=== PATIENT | male | born 1980 | race American Indian/Alaskan Native ===

== ENCOUNTER 2021-06-02 15:42 | Inpatient (IN) | payer MEDICAID ==
[~2021-06-02] VITALS: Ht 182.9 cm; Wt 115.9 kg
[2021-06-02] VITALS (11 sets, daily range): BP systolic 115–146; BP diastolic 60–94
[2021-06-02 16:41] LABS: BASOPHILS % (AUTO) 0.2 % (0-1); EOSINOPHILS % (AUTO) 0.2 % (0-6); HEMATOCRIT 42.9 % (42.0-52.0); LYMPHOCYTES # (AUTO) 0.8 X10'3 (1.1-4.8); LYMPHOCYTES % (AUTO) 4.1 % (21-51); MEAN CORPUSCULAR HEMOGLOBIN 29.5 PG (27.0-31.0); MEAN CORPUSCULAR VOLUME 84.1 FL (78-98); MEAN PLATELET VOLUME 7.3 FL (7.4-10.4); MONOCYTES # (AUTO) 1.5 X10'3 (0-0.9); MONOCYTES % (AUTO) 7.4 % (2-12); NEUTROPHILS # (AUTO) 17.4 X10'3 (1.8-7.7); NEUTROPHILS % (AUTO) 88.1 % (42-75); PLATELET COUNT 272 X10'3 (140-440); RED CELL DISTRIBUTION WIDTH 14.1 % (11.5-14.5); WHITE BLOOD COUNT 19.7 X10'3 (4.5-11.0)
[2021-06-02] MEDS ORDERED: iohexol 300mg/ml 100ml inj. ONE (16:42)
[2021-06-02 16:55] LABS: ALANINE AMINOTRANSFERASE 78 U/L (12-78); ALBUMIN 4.5 G/DL (3.4-5.0); ALBUMIN/GLOBULIN RATIO 0.9 (1.1-1.5); ALKALINE PHOSPHATASE 57 IU/L (46-116); ANION GAP 10 (8-16); ASPARTATE AMINO TRANSFERASE 20 U/L (10-37); BILIRUBIN,TOTAL 0.9 MG/DL (0.1-1.0); BLOOD UREA NITROGEN 8 MG/DL (7-18); BUN/CREATININE RATIO 7.8 (5.4-32.0); CALCIUM 9.7 MG/DL (8.5-10.1); CHLORIDE 94 MMOL/L (99-107); CREATININE 1.02 MG/DL (0.60-1.10); GLUCOSE 129 MG/DL (70-104); LIPASE 66 U/L (73-393); POTASSIUM 4.1 MMOL/L (3.5-5.1); SODIUM 132 MMOL/L (135-145); TOTAL CARBON DIOXIDE 28.1 MMOL/L (24-32); TOTAL PROTEIN 9.4 G/DL (6.4-8.2); eGFR 81 ML/MIN
[2021-06-02] MEDS ORDERED: metroNIDAZOLE-Flagyl 500mg/NS 100 ML IV STA (17:46)
[2021-06-02] MEDS ORDERED: CefTRIAXone/D5W-Rocephin 1gm 50 ML IV ONE (17:50)
[2021-06-02] MEDS ORDERED: MULT-1085 PO (18:34)
[2021-06-02] MEDS ORDERED: ondansetron/PF 4mg/2ml inj IV PRN ×2 (19:00→19:15)
[2021-06-02] MEDS ORDERED: potassium CL 10mEq/100ml bag 100 ML IV PRN (19:00)
[2021-06-02] MEDS ORDERED: potassium Cl 20 mEq SR tablet PO PRN ×2 (19:00)
[2021-06-02] MEDS ORDERED: morphine 2 MG/ML inj. syringe IV PRN ×2 (19:00→19:15)
[2021-06-02] MEDS: normal saline 1000ml 1,000 ML IV SCH (19:00)
[2021-06-02] MEDS ORDERED: magnesium 4gm in 100ml NS 100 ML IV PRN (19:00)
[2021-06-02] MEDS ORDERED: magnesium 2GM in 50ml NS 50 ML IV PRN (19:00)
[2021-06-02] MEDS ORDERED: magnesium Cl slow-release 64mg tablet PO PRN (19:00)
[2021-06-02] MEDS ORDERED: acetaminophen 325mg tablet PO PRN (19:00)
[2021-06-02] MEDS ORDERED: meperidine/PF 25mg/ml syringe IV PRN ×3 (19:15)
[2021-06-02] MEDS ORDERED: morphine 4 MG/ML inj SYRINge IV PRN (19:15)
[2021-06-02] MEDS ORDERED: ketorolac trometh. 30mg/ml inj. IV ONE (19:15)
[2021-06-02] MEDS ORDERED: proCHLORperazine 10 MG/2 ml inj IV PRN (19:15)
[2021-06-02] MEDS ORDERED: acetaminophen 1,000mg/100ml IV 100 ML IV PRN (19:15)
[2021-06-02] MEDS ORDERED: labetalol 20mg/4ml (5mg/ml) syringe IV PRN (19:15)
[2021-06-02] MEDS ORDERED: ringers solution, lacted 1,000 ML IV SCH (19:15)
[2021-06-02] MEDS ORDERED: hydrALAZINE 20mg/ml inj. IV PRN (19:15)
[2021-06-02] MEDS ORDERED: midazolam 1 mg/ML 2ml injection ONE (19:17)
[2021-06-02] MEDS ORDERED: famotidine/PF 10 mg/ml inj IV ONE (19:19)
[2021-06-02] MEDS ORDERED: fentaNYL /PF 50mcg/ml 5ml ampule ONE (19:21)
[2021-06-02] MEDS ORDERED: BUPIVAcaine/PF 2.5 mg/ml (0.25%) 30ml vial ONE (19:22)
[2021-06-02] MEDS ORDERED: sevoflurane 250ml liquid IH ONE (19:32)
[2021-06-02 19:43] LABS: MAGNESIUM 2.3 MG/DL (1.5-2.4); POTASSIUM 4.1 MMOL/L (3.5-5.1)
[2021-06-02] MEDS: K and/or MAG REPLACEMENT MC SCH (20:00)
[2021-06-02] MEDS: piperacillin/tazo 4.5gm/100ml 100 ML IV SCH (20:00)
[2021-06-02] MEDS ORDERED: rocuronium 10mg/ml inj IV ONE ×3 (20:09→21:18)
[2021-06-02] MEDS ORDERED: dexamethasone sod phosphate 4mg/ml inj. ONE (20:09)
[2021-06-02] MEDS ORDERED: acetaminophen 1,000mg/100ml IV 100 ML IV ONE (20:09)
[2021-06-02] MEDS ORDERED: LIDOcaine 2% (20mg/ml) 5ml vial ONE (20:09)
[2021-06-02] MEDS ORDERED: ondansetron/PF 4mg/2ml inj ONE (20:09)
[2021-06-02] MEDS ORDERED: propofol inj 20 ML IV ONE (20:09)
[2021-06-02] MEDS ORDERED: BUPIVAcaine/PF 2.5mg/ml (0.25%) 10ml vial ONE (20:29)
[2021-06-02] MEDS ORDERED: BUPIVACAINE liposomal/PF 13.3 MG/ML vial IM ONE (20:30)
[2021-06-02] MEDS ORDERED: glycopyrrolate 0.2mg/ml inj ONE (21:18)
[2021-06-02] MEDS ORDERED: neostigmine methylsulfate 1 MG/ML 10ml vial ONE (21:18)
--- NOTE | 2021-06-02 21:23 | NUR ---
Received from OR via SURGICAL BED , accompanied by Anesthesiologist DR WONG and report given by Anesthesiolgist. PT AROUSALBLE. STATES HIS PAIN IS MINIMAL. DRSG TO ABD CDI. ANURADHA DRAIN TO ABD W/ SS DRAINAGE NOTED. SCDS ON. IV PATENT.
--- NOTE | 2021-06-02 22:23 | NUR ---
PT TO [facility] [address] SURGICAL FLOOR VIA BED. CRISTY AT BEDSIDE. PT STATES PAIN IS WELL CONTROLLED AND DENIES NAUSEA. STATED READINESS FOR XFER TO FLOOR AND DENIES ANY NEEDS. PT ORIENTED TO ROOM AND CALL LIGHT. BED LOW, LOCKED, CALL LIGHT IN REACH. VSS. PT SET UP ON POST OP VITALS PER PROTOCOL. 1 BELONGING BAG TO ROOM. PHONE AT PT BEDSIDE. IV PATENT AND ABD DRSG REMAINS CDI.
[2021-06-03] VITALS (7 sets, daily range): BP systolic 110–142; BP diastolic 56–90
[2021-06-03] MEDS ORDERED: metroNIDAZOLE-Flagyl 500mg/NS 100 ML IV SCH
[2021-06-03] MEDS: ketorolac trometh. 30mg/ml inj. IV PRN ×2 (00:30→05:53)
[2021-06-03] MEDS: Melatonin 3mg tablet PO SCH ×2 (01:24→21:23)
[2021-06-03] MEDS: normal saline 1000ml 1,000 ML IV SCH ×2 (05:00→15:00)
--- NOTE | 2021-06-03 07:20 | NUR ---
Problems reprioritized. Patient report given, questions answered & plan of care reviewed with
[2021-06-03] MEDS: piperacillin/tazo 4.5gm/100ml 100 ML IV SCH ×2 (07:27→16:13)
[2021-06-03 07:30] LABS: ALANINE AMINOTRANSFERASE 51 U/L (12-78); ALBUMIN 3.4 G/DL (3.4-5.0); ALBUMIN/GLOBULIN RATIO 0.9 (1.1-1.5); ALKALINE PHOSPHATASE 44 IU/L (46-116); ANION GAP 15 (8-16); ASPARTATE AMINO TRANSFERASE 15 U/L (10-37); BILIRUBIN,TOTAL 0.7 MG/DL (0.1-1.0); BLOOD UREA NITROGEN 8 MG/DL (7-18); BUN/CREATININE RATIO 7.9 (5.4-32.0); CALCIUM 9.1 MG/DL (8.5-10.1); CHLORIDE 101 MMOL/L (99-107); CREATININE 1.01 MG/DL (0.60-1.10); GLUCOSE 157 MG/DL (70-104); MAGNESIUM 2.3 MG/DL (1.5-2.4); POTASSIUM 3.8 MMOL/L (3.5-5.1); SODIUM 139 MMOL/L (135-145); TOTAL CARBON DIOXIDE 23.4 MMOL/L (24-32); TOTAL PROTEIN 7.1 G/DL (6.4-8.2); eGFR 82 ML/MIN
[2021-06-03 07:31] LABS: BASOPHILS % (AUTO) 0 % (0-1); EOSINOPHILS % (AUTO) 0 % (0-6); HEMATOCRIT 39.8 % (42.0-52.0); HEMOGLOBIN 13.4 g/dl (14.0-17.9); LYMPHOCYTES # (AUTO) 0.5 X10'3 (1.1-4.8); LYMPHOCYTES % (AUTO) 3.8 % (21-51); MEAN CORPUSCULAR HEMOGLOBIN 29.2 PG (27.0-31.0); MEAN CORPUSCULAR HGB CONC 33.8 g/dL (33.0-36.5); MEAN CORPUSCULAR VOLUME 86.3 FL (78-98); MEAN PLATELET VOLUME 7.7 FL (7.4-10.4); MONOCYTES % (AUTO) 6.9 % (2-12); NEUTROPHILS # (AUTO) 12.4 X10'3 (1.8-7.7); NEUTROPHILS % (AUTO) 89.3 % (42-75); PLATELET COUNT 220 X10'3 (140-440); RED BLOOD COUNT 4.61 X10'6 (4.70-6.10); RED CELL DISTRIBUTION WIDTH 13.9 % (11.5-14.5); WHITE BLOOD COUNT 13.9 X10'3 (4.5-11.0)
[2021-06-03] MEDS ORDERED: CefTRIAXone/D5W-Rocephin 1gm 50 ML IV SCH (08:00)
[2021-06-03] MEDS: K and/or MAG REPLACEMENT MC SCH ×2 (08:00→20:00)
[2021-06-03] MEDS: HYDROcodone/acetaminophen 10/325mg tab PO PRN ×3 (10:55→22:36)
[2021-06-03] MEDS: potassium CL 20mEq in D5-1/2NS 1,000 ML IV SCH ×4 (10:56→21:24)
[2021-06-03] MEDS: morphine 2 MG/ML inj. syringe IV PRN ×2 (12:36→18:47)
--- NOTE | 2021-06-03 18:46 | NUR ---
Report given to Stoney LLA, all questions answered, no current concerns. Pt resting comfortably but with some pain, at bedside. Pain meds recently given.
[2021-06-03] MEDS: lactobacillus rhamnosus 10,000 MMU CELLS/CAPSULE PO SCH (21:23)
[2021-06-04] MEDS: piperacillin/tazo 4.5gm/100ml 100 ML IV SCH ×3 (00:13→17:01)
[2021-06-04] MEDS ORDERED: ondansetron/PF 4mg/2ml inj IV PRN (04:20)
[2021-06-04] MEDS ORDERED: ondansetron/PF 4mg/2ml inj IV ONE (04:20)
[2021-06-04] MEDS: potassium CL 20mEq in D5-1/2NS 1,000 ML IV SCH ×2 (04:54→14:12)
[2021-06-04 06:48] LABS: BASOPHILS % (AUTO) 0.1 % (0-1); EOSINOPHILS % (AUTO) 0.2 % (0-6); HEMATOCRIT 39.6 % (42.0-52.0); HEMOGLOBIN 13.4 g/dl (14.0-17.9); LYMPHOCYTES # (AUTO) 0.7 X10'3 (1.1-4.8); MEAN CORPUSCULAR HEMOGLOBIN 29.2 PG (27.0-31.0); MEAN CORPUSCULAR HGB CONC 33.8 g/dL (33.0-36.5); MEAN CORPUSCULAR VOLUME 86.6 FL (78-98); MEAN PLATELET VOLUME 7.9 FL (7.4-10.4); MONOCYTES % (AUTO) 8.6 % (2-12); NEUTROPHILS # (AUTO) 10.3 X10'3 (1.8-7.7); NEUTROPHILS % (AUTO) 85.1 % (42-75); PLATELET COUNT 256 X10'3 (140-440); RED BLOOD COUNT 4.58 X10'6 (4.70-6.10); RED CELL DISTRIBUTION WIDTH 14.2 % (11.5-14.5); WHITE BLOOD COUNT 12.1 X10'3 (4.5-11.0)
[2021-06-04 06:57] LABS: ALANINE AMINOTRANSFERASE 39 U/L (12-78); ALBUMIN 3.2 G/DL (3.4-5.0); ALBUMIN/GLOBULIN RATIO 0.7 (1.1-1.5); ALKALINE PHOSPHATASE 52 IU/L (46-116); ANION GAP 10 (8-16); ASPARTATE AMINO TRANSFERASE 20 U/L (10-37); BILIRUBIN,TOTAL 0.7 MG/DL (0.1-1.0); BLOOD UREA NITROGEN 10 MG/DL (7-18); BUN/CREATININE RATIO 10.2 (5.4-32.0); CALCIUM 8.9 MG/DL (8.5-10.1); CHLORIDE 99 MMOL/L (99-107); CREATININE 0.98 MG/DL (0.60-1.10); GLUCOSE 159 MG/DL (70-104); MAGNESIUM 2.3 MG/DL (1.5-2.4); SODIUM 134 MMOL/L (135-145); TOTAL CARBON DIOXIDE 24.6 MMOL/L (24-32); TOTAL PROTEIN 7.5 G/DL (6.4-8.2); eGFR 85 ML/MIN
--- NOTE | 2021-06-04 07:09 | NUR ---
Problems reprioritized. Patient report given, questions answered & plan of care reviewed with SCOTT. Addendum: 06/04/21 at 0709 by Rowdy Figueroa RN Amended: Links added.
[2021-06-04 07:15] VITALS: BP 152/95
[2021-06-04] MEDS: lactobacillus rhamnosus 10,000 MMU CELLS/CAPSULE PO SCH ×2 (07:43→20:00)
[2021-06-04] MEDS: K and/or MAG REPLACEMENT MC SCH ×2 (07:43→20:00)
[2021-06-04] MEDS: HYDROcodone/acetaminophen 10/325mg tab PO PRN ×3 (07:48→20:26)
--- NOTE | 2021-06-04 08:39 | NUR ---
PAGER ID: [phone] MESSAGE: [id number] Zelda August: patient requesting Maalox. celestina tomlin [phone]
[2021-06-04] MEDS: morphine 2 MG/ML inj. syringe IV PRN ×2 (11:20→17:05)
[2021-06-04 12:48] VITALS: BP 143/83
[2021-06-04] MEDS ORDERED: mag hydrox/Alum hydrox/simeth 30ml oral suspension PO PRN (13:15)
[2021-06-04] MEDS: metoclopramide 5 mg/ml inj IV SCH ×2 (14:12→20:25)
--- NOTE | 2021-06-04 16:19 | NUR ---
PAGE SENT TO [facility]. 332Y Zelda VALADEZ: PATIENT NEEDS TO BE DARTED. THANK YOU!
[2021-06-04 18:00] VITALS: BP 148/86
--- NOTE | 2021-06-04 18:11 | NUR ---
Problems reprioritized. Patient report given, questions answered & plan of care reviewed with LUKASZ HARMON.
[2021-06-04] MEDS: enoxaparin 40mg/0.4ml syringe SUBCUT SCH (20:25)
[2021-06-04] MEDS: Melatonin 3mg tablet PO SCH (20:26)
[2021-06-05] VITALS: BP 145/93
[2021-06-05] MEDS: piperacillin/tazo 4.5gm/100ml 100 ML IV SCH ×3 (00:13→15:39)
[2021-06-05] MEDS: potassium CL 20mEq in D5-1/2NS 1,000 ML IV SCH ×4 (00:14→21:10)
[2021-06-05] MEDS: metoclopramide 5 mg/ml inj IV SCH ×4 (02:10→20:00)
--- NOTE | 2021-06-05 05:00 | NUR ---
Stable throughout the shift. Has not passed gas, feels "more gurgling." 290cc from drain
[2021-06-05 06:00] LABS: BASOPHILS % (AUTO) 0.4 % (0-1); EOSINOPHILS # (AUTO) 0.3 X10'3 (0-0.9); EOSINOPHILS % (AUTO) 3.4 % (0-6); HEMATOCRIT 37.9 % (42.0-52.0); HEMOGLOBIN 13.2 g/dl (14.0-17.9); LYMPHOCYTES # (AUTO) 0.9 X10'3 (1.1-4.8); LYMPHOCYTES % (AUTO) 12.6 % (21-51); MEAN CORPUSCULAR HEMOGLOBIN 30.2 PG (27.0-31.0); MEAN CORPUSCULAR HGB CONC 34.7 g/dL (33.0-36.5); MEAN CORPUSCULAR VOLUME 86.9 FL (78-98); MEAN PLATELET VOLUME 7.4 FL (7.4-10.4); MONOCYTES # (AUTO) 0.8 X10'3 (0-0.9); MONOCYTES % (AUTO) 11.4 % (2-12); NEUTROPHILS # (AUTO) 5.3 X10'3 (1.8-7.7); NEUTROPHILS % (AUTO) 72.2 % (42-75); PLATELET COUNT 283 X10'3 (140-440); RED BLOOD COUNT 4.36 X10'6 (4.70-6.10); RED CELL DISTRIBUTION WIDTH 13.9 % (11.5-14.5); WHITE BLOOD COUNT 7.3 X10'3 (4.5-11.0)
--- NOTE | 2021-06-05 06:15 | NUR ---
Change of shift report given to Angeles LAL Addendum: 06/05/21 at 0654 by Charu Frederick RN Amended: Links added.
[2021-06-05 06:17] LABS: ALANINE AMINOTRANSFERASE 34 U/L (12-78); ALBUMIN/GLOBULIN RATIO 0.7 (1.1-1.5); ALKALINE PHOSPHATASE 42 IU/L (46-116); ANION GAP 8 (8-16); ASPARTATE AMINO TRANSFERASE 13 U/L (10-37); BILIRUBIN,TOTAL 0.6 MG/DL (0.1-1.0); BLOOD UREA NITROGEN 7 MG/DL (7-18); CALCIUM 9.1 MG/DL (8.5-10.1); CHLORIDE 101 MMOL/L (99-107); GLUCOSE 143 MG/DL (70-104); MAGNESIUM 2.3 MG/DL (1.5-2.4); POTASSIUM 4.1 MMOL/L (3.5-5.1); SODIUM 137 MMOL/L (135-145); TOTAL CARBON DIOXIDE 27.6 MMOL/L (24-32); TOTAL PROTEIN 7.2 G/DL (6.4-8.2); eGFR 83 ML/MIN
[2021-06-05 07:00] VITALS: BP 155/100
[2021-06-05] MEDS: K and/or MAG REPLACEMENT MC SCH ×2 (08:00→20:00)
[2021-06-05] MEDS: lactobacillus rhamnosus 10,000 MMU CELLS/CAPSULE PO SCH ×2 (08:00→20:00)
[2021-06-05] MEDS: ketorolac trometh. 30mg/ml inj. IV PRN ×2 (08:08→15:42)
[2021-06-05 13:00] VITALS: BP 145/95
[2021-06-05 18:00] VITALS: BP 163/86
--- NOTE | 2021-06-05 18:18 | NUR ---
Problems reprioritized. Patient report given, questions answered & plan of care reviewed with LUKASZ Mora.
--- NOTE | 2021-06-05 18:18 | NUR ---
Patient in room [facility]. I have received report from LUKASZ Reynoso and had the opportunity to ask questions and assume patient care.
[2021-06-05] MEDS: enoxaparin 40mg/0.4ml syringe SUBCUT SCH (20:00)
[2021-06-06] MEDS: piperacillin/tazo 4.5gm/100ml 100 ML IV SCH ×2 (00:04→09:16)
[2021-06-06] MEDS: Melatonin 3mg tablet PO SCH (00:05)
[2021-06-06 00:15] VITALS: BP 161/93
[2021-06-06 00:20] VITALS: BP 148/82
[2021-06-06] MEDS: ketorolac trometh. 30mg/ml inj. IV PRN ×2 (01:27→10:50)
[2021-06-06] MEDS: metoclopramide 5 mg/ml inj IV SCH ×2 (01:56→08:00)
[2021-06-06] MEDS: potassium CL 20mEq in D5-1/2NS 1,000 ML IV SCH ×2 (05:10→09:04)
[2021-06-06 06:31] LABS: MEAN CORPUSCULAR HEMOGLOBIN 29.9 PG (27.0-31.0)
[2021-06-06 06:34] LABS: BASOPHILS % (AUTO) 0.4 % (0-1); EOSINOPHILS # (AUTO) 0.3 X10'3 (0-0.9); HEMATOCRIT 36.6 % (42.0-52.0); HEMOGLOBIN 12.7 g/dl (14.0-17.9); LYMPHOCYTES # (AUTO) 0.9 X10'3 (1.1-4.8); LYMPHOCYTES % (AUTO) 10.3 % (21-51); MEAN CORPUSCULAR HGB CONC 34.6 g/dL (33.0-36.5); MEAN CORPUSCULAR VOLUME 86.5 FL (78-98); MEAN PLATELET VOLUME 7.3 FL (7.4-10.4); MONOCYTES # (AUTO) 0.9 X10'3 (0-0.9); MONOCYTES % (AUTO) 10.4 % (2-12); NEUTROPHILS # (AUTO) 6.4 X10'3 (1.8-7.7); NEUTROPHILS % (AUTO) 74.9 % (42-75); PLATELET COUNT 284 X10'3 (140-440); RED BLOOD COUNT 4.23 X10'6 (4.70-6.10); RED CELL DISTRIBUTION WIDTH 13.8 % (11.5-14.5); WHITE BLOOD COUNT 8.5 X10'3 (4.5-11.0)
--- NOTE | 2021-06-06 06:43 | NUR ---
Problems reprioritized. Patient report given, questions answered & plan of care reviewed with LUKASZ Davies.
[2021-06-06 06:56] LABS: ALANINE AMINOTRANSFERASE 35 U/L (12-78); ALBUMIN 2.9 G/DL (3.4-5.0); ALBUMIN/GLOBULIN RATIO 0.7 (1.1-1.5); ALKALINE PHOSPHATASE 46 IU/L (46-116); ANION GAP 10 (8-16); ASPARTATE AMINO TRANSFERASE 13 U/L (10-37); BILIRUBIN,TOTAL 0.7 MG/DL (0.1-1.0); BLOOD UREA NITROGEN 9 MG/DL (7-18); BUN/CREATININE RATIO 8.7 (5.4-32.0); CALCIUM 9.1 MG/DL (8.5-10.1); CHLORIDE 100 MMOL/L (99-107); CREATININE 1.04 MG/DL (0.60-1.10); GLUCOSE 91 MG/DL (70-104); MAGNESIUM 2.1 MG/DL (1.5-2.4); POTASSIUM 3.7 MMOL/L (3.5-5.1); SODIUM 137 MMOL/L (135-145); TOTAL CARBON DIOXIDE 27.1 MMOL/L (24-32); TOTAL PROTEIN 6.8 G/DL (6.4-8.2); eGFR 80 ML/MIN
[2021-06-06 07:00] VITALS: BP 143/91
[2021-06-06] MEDS: lactobacillus rhamnosus 10,000 MMU CELLS/CAPSULE PO SCH ×2 (08:00→09:16)
[2021-06-06] MEDS: K and/or MAG REPLACEMENT MC SCH (08:00)
[2021-06-06] MEDS ORDERED: AMOX-422 PO (10:51)
[2021-06-06] MEDS ORDERED: HYDR-3965 PO (10:51)
[2021-06-06 11:00] VITALS: BP 145/83
--- NOTE | 2021-06-06 11:47 | NUR ---
message to dr hernandez "PAGER ID: [phone] MESSAGE: is the ANURADHA drain to be removed prior to d/c? does the dressing need to be changed? [address] allison Brower rn [id number]"
--- NOTE | 2021-06-06 12:18 | NUR ---
TO from dr oslis to remove ANURADHA drain and for pt to perform daily dressing changes untill f/u appt
--- NOTE | 2021-06-06 13:06 | NUR ---
1230 ANURADHA drain removed, pt tolerated well. midline incision dressing removed, cleansed with NS, and redressed with island dressing. pt sent with extra dressing supplies per dr cifuentes orders. all sx site incision care reviewed with pt, pt expressed understanding Addendum: 06/06/21 at 1308 by Keke Frederick RN Amended: Links added.
== END 2021-06-06 12:56 | disposition home or self-care (01) | DRG 233 ==
LOC: ER 15:45 → ED HOLD 19:01 → SUR 3N 20:43
PROVIDERS: ADMIT Internal Medicine; ATTEND Family Medicine
PROC: 0WJG4ZZ Inspection of Peritoneal Cavity, Percutaneous Endoscopic Approach (ICD-10-PCS; 2021-06-02)
PROC: BW211ZZ Computerized Tomography (CT Scan) of Abdomen and Pelvis using Low Osmolar Contrast (ICD-10-PCS; 2021-06-02)
PROC: 0DTJ0ZZ Resection of Appendix, Open Approach (ICD-10-PCS; principal; 2021-06-02 19:32)
DX: K35.32 Acute appendicitis with perforation, localized peritonitis, and gangrene, without abscess (principal); E87.1 Hypo-osmolality and hyponatremia; Z20.822 Contact with and (suspected) exposure to COVID-19; B96.20 Unspecified Escherichia coli [E. coli] as the cause of diseases classified elsewhere; Z86.16 Personal history of COVID-19; Z79.899 Other long term (current) drug therapy; K56.7 Ileus, unspecified
CPT/HCPCS: 36415; 74177; 80053; 83690; 83735; 84132; 85025; 87070; 87075; 87077; 87186; 87635; 96365; 96367; 99285; A4215; A4314; A4618; A6253; A6402; A6407; A7000; C9290; C9803; G0378; J0131; J0696; J1100; J1650; J1885; J2250; J2270; J2405; J2543; J2704; J2710; J2765; J3010; J3480; J3490; J7120; Q9967